=== PATIENT | male | born 2000 | race Caucasian/White ===

== ENCOUNTER 2018-03-10 20:00 | Emergency (ER) | payer OTHER ==
[~2018-03-10] VITALS: Ht 172.7 cm; Wt 71.7 kg
[2018-03-10 20:08] VITALS: Ht 172.7 cm; Wt 71.7 kg
[2018-03-10 21:41] VITALS: BP 117/70
== END 2018-03-10 21:41 | disposition home or self-care (01) ==
LOC: ED 20:00
DX: M79.674 Pain in right toe(s) (principal); L53.9 Erythematous condition, unspecified; W01.0XXA Fall on same level from slipping, tripping and stumbling without subsequent striking against object, initial encounter; Y93.64 Activity, baseball; Y92.89 Other specified places as the place of occurrence of the external cause; Y99.8 Other external cause status